=== PATIENT | female | born 1975 | race Caucasian/White ===

== ENCOUNTER 2018-01-26 22:11 | Emergency (ER) | payer SELFPAY ==
[~2018-01-26] VITALS: Ht 157.5 cm; Wt 59.0 kg
[2018-01-26 22:11] VITALS: BP 141/72
--- NOTE | 2018-01-26 22:11 | NUR ---
BIBA BLS TO ER BED 9
--- NOTE | 2018-01-26 22:18 | NUR ---
PT BIBA FOR ANIEXTY S/P VERBAL ARGUMENT W/ SON. PT STATES SHE FELT "SHAKY" AT HOME. PT IS CALM ON ARRIVAL NO SHAKING NOTED, RR EVEN AND UNLABORED. VSS. PT LAYING IN BED, ER MD AWARE OF PT STATUS.
--- NOTE | 2018-01-26 23:09 | NUR ---
PT LAYING IN BED, VSS, CALM, FAMILY AT BEDSIDE.
[2018-01-26 23:37] VITALS: BP 124/55
--- NOTE | 2018-01-26 23:37 | NUR ---
Patient discharged with v/s stable. Written and verbal after care instructions given and explained. Patient verbalized understanding. Ambulatory with steady gait. All questions addressed prior to discharge. Advised to follow up with PMD.
== END 2018-01-26 23:37 | disposition home or self-care (01) ==
LOC: MED 22:11
DX: F41.0 Panic disorder [episodic paroxysmal anxiety] (principal); I10 Essential (primary) hypertension; R06.4 Hyperventilation; R68.83 Chills (without fever)
CPT/HCPCS: 99284